=== PATIENT | male | born 1980 | race African-American/Black ===

== ENCOUNTER 2019-02-17 16:55 | Emergency (ER) | payer MEDICARE ==
[~2019-02-17] VITALS: Ht 182.9 cm; Wt 111.4 kg
[2019-02-17] MEDS ORDERED: LISI-662 PO (17:16)
[2019-02-17] MEDS ORDERED: PRIM50 PO (17:16)
[2019-02-17] MEDS ORDERED: GABA-533 PO (17:16)
[2019-02-17] MEDS ORDERED: NAPR-1025 PO (17:16)
[2019-02-17] MEDS ORDERED: TAMS-13 PO (17:16)
[2019-02-17] MEDS ORDERED: ATOR40TA28 PO (17:16)
[2019-02-17] MEDS ORDERED: FLUO20SO9 PO (17:16)
[2019-02-17] MEDS ORDERED: METH500T7 PO (17:16)
[2019-02-17] MEDS ORDERED: CARV25 PO (17:16)
[2019-02-17] MEDS ORDERED: KETOROLAC TROMETHAMINE 30 MG/ML VIAL IVP ONE (17:30)
[2019-02-17] MEDS ORDERED: ONDANSETRON HCL 4 MG/2 ML VIAL IVP ONE (17:30)
[2019-02-17] MEDS ORDERED: SODIUM CHLORIDE 0.9% 1,000 ML IV ONE (17:30)
[2019-02-17] MEDS ORDERED: FLUO-191 PO (17:34)
[2019-02-17] MEDS ORDERED: PRIM250T24 PO (17:34)
[2019-02-17 17:56] LABS: BASOPHILS % (AUTO) 0.9 % (0.0-2.0); EOSINOPHILS % (AUTO) 2.8 % (1.0-6.0); HEMATOCRIT 41.3 % (41-53); HEMOGLOBIN 14.3 g/dL (13.5-17.5); LYMPHOCYTES # (AUTO) 1.8 K/uL (1.0-4.8); LYMPHOCYTES % (AUTO) 36.4 % (22.0-44.0); MEAN CORPUSCULAR HEMOGLOBIN 31.1 pg (26.0-34.0); MEAN CORPUSCULAR HGB CONC 34.6 G/dL (31.0-37.0); MEAN CORPUSCULAR VOLUME 90 fL (80-100); MONOCYTES # (AUTO) 0.5 K/uL (0.1-1.0); MONOCYTES % (AUTO) 9.4 % (2.0-9.0); NEUTROPHILS # (AUTO) 2.5 K/uL (1.8-7.7); NEUTROPHILS % (AUTO) 50.5 % (40.0-70.0); PLATELET COUNT (AUTO) 184 K/uL (150-450); RED BLOOD CELL COUNT(AUTO) 4.61 MIL/uL (4.50-5.90); RED CELL DISTRIBUTION WIDTH 13.1 % (11.5-14.5)
[2019-02-17 18:01] LABS: ANION GAP 7 mmol/L (8-16); CALCIUM, TOTAL 9.1 mg/dL (8.8-10.5); CARBON DIOXIDE 29 mmol/L (22-29); CHLORIDE 103 mmol/L (98-107); CREATININE 1.06 mg/dL (0.60-1.30); GLOMERULAR FILTR. RATE CALC > 60 mL/min (>60); GLUCOSE,RANDOM 275 mg/dL (70-110); POTASSIUM 4.6 mmol/L (3.5-5.1); SODIUM SERUM 139 mmol/L (136-145); UREA NITROGEN, BLOOD 12 mg/dL (7-18)
[2019-02-17 18:07] LABS: ALANINE AMINOTRANSFERASE 35 U/L (12-78); ALBUMIN 3.4 g/dL (3.4-5.0); ALKALINE PHOSPHATASE 113 U/L (46-116); ASPARTATE AMINOTRANSFERASE 17 U/L (15-37); BILIRUBIN,TOTAL 0.4 mg/dL (0.1-1.0); LIPASE 180 U/L (73-393); TOTAL PROTEIN, SERUM 7.3 g/dL (6.4-8.2)
[2019-02-17 19:27] VITALS: BP 151/98
== END 2019-02-17 21:00 | disposition home or self-care (01) ==
LOC: EMS 16:59
DX: R10.31 Right lower quadrant pain (principal); E11.9 Type 2 diabetes mellitus without complications; I10 Essential (primary) hypertension; F17.210 Nicotine dependence, cigarettes, uncomplicated; Z90.49 Acquired absence of other specified parts of digestive tract; Z79.899 Other long term (current) drug therapy
CPT/HCPCS: 36415; 74176; 80053; 81002; 82962; 83690; 85025; 96374; 96375; 99284; J1885; J2405; J7030

== ENCOUNTER 2019-03-11 11:12 | Emergency (ER) | payer MEDICARE, MEDICAID ==
[~2019-03-11] VITALS: Ht 190.5 cm; Wt 109.1 kg
[~2019-03-11 11:12] MED LIST: ATOR40TA28 PO; CARV25 PO; FLUO-191 PO; GABA-533 PO; LISI-662 PO; METH500T7 PO; NAPR-1025 PO; PRIM250T24 PO; TAMS-13 PO
[2019-03-11 12:12] LABS: GLUCOSE,POINT OF CARE 171 MG/DL (70-110)
[2019-03-11] MEDS ORDERED: PRIM50 PO (13:36)
[2019-03-11] MEDS ORDERED: ACETAMINOPHEN 325 MG TABLET PO ONE (13:45)
[2019-03-11] MEDS ORDERED: IBUPROFEN 600 MG TABLET PO ONE (13:45)
[2019-03-11 13:48] LABS: BASOPHILS % (AUTO) 0.4 % (0.0-2.0); EOSINOPHILS % (AUTO) 2.9 % (1.0-6.0); HEMATOCRIT 40.4 % (41-53); LYMPHOCYTES # (AUTO) 1.8 K/uL (1.0-4.8); LYMPHOCYTES % (AUTO) 32.6 % (22.0-44.0); MEAN CORPUSCULAR HEMOGLOBIN 30.6 pg (26.0-34.0); MEAN CORPUSCULAR HGB CONC 34.7 G/dL (31.0-37.0); MEAN CORPUSCULAR VOLUME 88 fL (80-100); MONOCYTES # (AUTO) 0.6 K/uL (0.1-1.0); MONOCYTES % (AUTO) 9.9 % (2.0-9.0); NEUTROPHILS % (AUTO) 54.2 % (40.0-70.0); PLATELET COUNT (AUTO) 190 K/uL (150-450); RED BLOOD CELL COUNT(AUTO) 4.58 MIL/uL (4.50-5.90); RED CELL DISTRIBUTION WIDTH 12.7 % (11.5-14.5)
[2019-03-11 13:49] LABS: ANION GAP 9 mmol/L (8-16); CALCIUM, TOTAL 9.1 mg/dL (8.8-10.5); CARBON DIOXIDE 27 mmol/L (22-29); CHLORIDE 106 mmol/L (98-107); CREATININE 0.94 mg/dL (0.60-1.30); GLOMERULAR FILTR. RATE CALC > 60 mL/min (>60); GLUCOSE,RANDOM 163 mg/dL (70-110); POTASSIUM 4.5 mmol/L (3.5-5.1); SODIUM SERUM 142 mmol/L (136-145); UREA NITROGEN, BLOOD 11 mg/dL (7-18)
[2019-03-11 14:10] LABS: B-TYPE NATRIURETIC PEPTIDE 16 pg/mL (0-100)
[2019-03-11 14:13] LABS: ALANINE AMINOTRANSFERASE 44 U/L (12-78); ALBUMIN 3.6 g/dL (3.4-5.0); ALKALINE PHOSPHATASE 121 U/L (46-116); ASPARTATE AMINOTRANSFERASE 22 U/L (15-37); BILIRUBIN,TOTAL 0.9 mg/dL (0.1-1.0); CREATINE KINASE, TOTAL ONLY 158 U/L (39-308); TOTAL PROTEIN, SERUM 7.3 g/dL (6.4-8.2)
[2019-03-11 14:40] VITALS: BP 160/90
== END 2019-03-11 14:40 | disposition home or self-care (01) ==
LOC: EMS 11:17
DX: R60.0 Localized edema (principal); I11.0 Hypertensive heart disease with heart failure; I50.9 Heart failure, unspecified; E11.9 Type 2 diabetes mellitus without complications; F17.210 Nicotine dependence, cigarettes, uncomplicated; Z90.89 Acquired absence of other organs; Z79.899 Other long term (current) drug therapy
CPT/HCPCS: 93005; 93970

== ENCOUNTER 2019-06-20 13:45 | Emergency (ER) | payer MEDICAID, MEDICARE ==
[~2019-06-20] VITALS: Ht 190.5 cm; Wt 108.2 kg
[~2019-06-20 13:45] MED LIST changes: -PRIM250T24 PO; +PRIM50 PO
[2019-06-20] MEDS: KETOROLAC TROMETHAMINE 30 MG/ML VIAL IM ONE (14:25)
[2019-06-20 15:36] VITALS: BP 184/95
== END 2019-06-20 15:45 | disposition home or self-care (01) ==
LOC: EMS 13:47
DX: E11.40 Type 2 diabetes mellitus with diabetic neuropathy, unspecified (principal); M79.661 Pain in right lower leg; M79.662 Pain in left lower leg; F17.210 Nicotine dependence, cigarettes, uncomplicated; I11.0 Hypertensive heart disease with heart failure; I50.9 Heart failure, unspecified; Z79.4 Long term (current) use of insulin; Z86.73 Personal history of transient ischemic attack (TIA), and cerebral infarction without residual deficits; Z79.899 Other long term (current) drug therapy
CPT/HCPCS: 82962; 96372; 99283; 99406; J1885

== ENCOUNTER 2019-07-02 18:55 | Emergency (ER) | payer MEDICARE ==
[~2019-07-02] VITALS: Ht 190.5 cm; Wt 104.5 kg
[2019-07-02] MEDS ORDERED: ACETAMINOPHEN 325 MG TABLET PO ONE (19:45)
[2019-07-02] MEDS ORDERED: IBUPROFEN 400 MG TABLET PO ONE (19:45)
[2019-07-02 22:22] VITALS: BP 149/101
== END 2019-07-02 22:41 | disposition home or self-care (01) ==
LOC: EMS 19:04
DX: S80.02XA Contusion of left knee, initial encounter (principal); S00.83XA Contusion of other part of head, initial encounter; I11.0 Hypertensive heart disease with heart failure; I50.9 Heart failure, unspecified; F17.210 Nicotine dependence, cigarettes, uncomplicated; W19.XXXA Unspecified fall, initial encounter; Y93.89 Activity, other specified; Y92.098 Other place in other non-institutional residence as the place of occurrence of the external cause; Y99.8 Other external cause status
CPT/HCPCS: 70486